=== PATIENT | female | born 1990 | race Two or more races ===

== ENCOUNTER 2022-01-25 02:34 | Inpatient (IN) | payer OTHER, SELFPAY ==
--- NOTE | ~2022-01-25 | CT_ITS ---
EXAMINATION: CT ABDOMEN AND PELVIS WITHOUT CONTRAST CLINICAL INFORMATION: Left flank pain COMPARISON: None TECHNIQUE: Multidetector volumetric imaging was performed from the superior aspect of the liver through the pubic symphysis. Sagittal and coronal reformatted images were obtained on the technologist's workstation. This CT examination was performed using dose optimization techniques as appropriate, variously including the following: *Automated exposure control *Adjustment of mA and/or kV according to patient size (this includes techniques or standardized protocols for targeted exams where dose is matched to indication/reason for exam; i.e. extremities or head) *Use of iterative reconstruction technique DLP: 541 mGy-cm FINDINGS: LUNG BASES: The visualized lung bases are unremarkable. LIVER, GALLBLADDER, AND BILIARY TREE: The liver is normal in size, shape, and attenuation. No focal hepatic lesion or biliary ductal dilatation is present. Cholecystectomy. PANCREAS: Unremarkable. SPLEEN: Unremarkable. ADRENAL GLANDS: Unremarkable. KIDNEYS AND URETERS: The kidneys are normal in size, shape, and attenuation. Mild left hydroureteronephrosis. 0.5 cm distal ureteral calculus noted which is approximately 3 cm proximal to the ureterovesicular junction. There is medullary nephrocalcinosis with multiple bilateral renal calculi present the largest of these measures approximately 900 Hounsfield units, measuring up to 0.6 cm .. BLADDER: Unremarkable. GASTROINTESTINAL TRACT: The stomach is unremarkable. Normal caliber small bowel. No obstruction. No colonic wall thickening or inflammatory change. Normal appendix. ABDOMINAL WALL: No significant hernia is appreciated. LYMPH NODES: Normal. VASCULAR: Unremarkable. PELVIC VISCERA: The uterus and adnexa are unremarkable. OSSEOUS STRUCTURES: No acute or suspicious osseous abnormality. CT/CT abdomen pelvis wo con IMPRESSION: Medullary nephrocalcinosis. Mild left hydroureteronephrosis with a 0.4 cm distal ureteral calculus noted. Fleischner guidelines were followed.
--- NOTE | ~2022-01-25 | FL_ITS ---
EXAMINATION: XR FLUOROSCOPY WITH IMAGES CLINICAL INFORMATION: Left ureteral stone COMPARISON: CT 01/25/2022 TECHNIQUE: Fluoroscopy performed by Dr. Bowen Eubanks. Fluoroscopy time: 25.3 seconds Images: 2 FINDINGS: On these images there is a left ureteral stent in place. No contrast seen. FL/FL guidance in OR IMPRESSION: Fluoroscopic guidance with left ureteral stent placement. Please refer to procedural report for further information.
[2022-01-25 03:06] VITALS: BP 142/100; PULSE 102; RESP 24; TEMP 37.2; O2SAT 100; BMI 29.2
[2022-01-25] MEDS: Ketorolac Tromethamine 15 MG/ML VIAL IM (04:08)
[2022-01-25] MEDS: Ondansetron ODT 4 MG TAB.RAPDIS TRANSLINGU (04:09)
[2022-01-25 05:16] LABS: MANUAL DIFF FLAG NO
[2022-01-25 05:17] LABS: Basophils Percent Auto 0.2 % (0-2); Eosinophils Percent Auto 0.3 % (0-4); Hematocrit 38.9 % (37.0-47.0); Hemoglobin 13.6 g/dl (12.0-16.0); Imm Gran Abs Auto 0.08 X10*3/uL (0.00-0.03); Imm Gran Pct Auto 0.6 % (0.0-0.4); Lymphocytes Absolute Auto 1.5 X10*3/uL (1.2-4.9); Lymphocytes Percent Auto 11.6 % (20-40); Mean Corpuscular Hemoglobin 31.5 pg (27.0-33.0); Mean Platelet Volume 9.9 fL (9.4-12.3); Monocytes Absolute Auto 0.4 X10*3/uL (0.1-1.2); Monocytes Percent Auto 3.2 % (2-11); Neutrophils Absolute Auto 11.1 x10*3/uL (2.0-8.3); Neutrophils Percent Auto 84.1 % (45-73); Platelet Count 338 X10*3/uL (160-400); Red Blood Count 4.32 X10*6/uL (4.20-5.50); Red Cell Distribution Width 12.4 % (11.0-16.0); White Blood Count 13.2 X10*3/uL (4.8-10.8)
[2022-01-25] MEDS: 0.9 % Sodium Chloride 1,000 ML 999 ML IV (05:27)
[2022-01-25] MEDS: fentaNYL citrate/PF 100 MCG/2 ML VIAL 25 MCG IVPUSH ×2 (05:27→08:00)
--- NOTE | 2022-01-25 05:27 | ED.ABDPAIN ---
HPI - Abdominal Pain General Chief Complaint: Abdominal Pain Stated Complaint: Flank pain/?Kidney stone Time Seen by Provider: 01/25/22 05:18 Source: patient Mode of arrival: ambulatory History of Present Illness HPI narrative: 32-year-old female without significant past medical history other than renal colic who presents with onset of left flank pain that began at 01:30 and has been associated with nausea but she denies any vomiting or fevers and has had chills when experiencing the pain. She denies any prior urinary pain/burning/frequency before the onset of the left flank pain. Related Data Allergies Allergy/AdvReac Type Severity Reaction Status Date / Time No Known Allergies Allergy Verified 01/25/22 03:06 Review of Systems Review of Systems Pertinent positives and negatives as stated in HPI 10 point review of systems is otherwise negative. FORMERLY [facility] Past Medical History Source: nursing notes reviewed Social History Social History Advance Directives: No Physical Exam ED Vital Signs: Vital Signs - 24 hr 01/25/22 03:06 01/25/22 06:21 Temperature 98.9 F 98.3 F Pulse Rate 102 H 98 Respiratory Rate 24 H 16 Blood Pressure 142/100 H 133/81 Pulse Oximetry 100 100 BMI result Body Mass Index 29.2 VITAL SIGNS: Reviewed. GENERAL: Well developed, well nourished, in no acute distress. HEAD: Normocephalic/atraumatic EYES: PERRLA, EOMI EARS: Ext canals without abnormality OROPHARYNX: no oral lesions noted, posterior pharynx clear LUNGS: Normal breath sounds. No adventitious sounds or accessory muscle use. SpO2<100> CARDIOVASCULAR: Regular rate and rhythm without noted murmurs, ABDOMEN: Soft, left flank discomfort on palpation without rebound, non-distended with bowel sounds, no CVA tenderness MUSCULOSKELETAL: No tenderness, deformities, or effusions noted on gross inspection. EXTREMITIES: No cyanosis, clubbing or edema. SKIN: Inspection of the skin reveals no rashes NEUROLOGIC: Alert and oriented x 4. Course Course Course Narrative: 32-year-old female with history and clinical presentation consistent with most likely renal colic and doubt pyelonephritis, diverticulitis. Review of all investigations demonstrates a 4 mm stone with hydroureteronephrosis and pain is not well controlled. Patient receiving IV fluids and will receive more pain medications. Reevaluation(s) Reevaluation #1: I discussed case with Dr. Eubanks who will see the patient in the ER. Time: 07:25 MDM - Abdominal Pain Lab Data Result diagrams: 01/25/22 05:12 01/25/22 05:12 Labs: Lab Results 01/25/22 01/25/22 01/25/22 Range/Units 05:12 05:12 06:26 WBC 13.2 H (4.8-10.8) X10*3/uL RBC 4.32 (4.20-5.50) X10*6/uL Hgb 13.6 (12.0-16.0) g/dl Hct 38.9 (37.0-47.0) % MCV 90.0 (80.0-98.0) fL MCH 31.5 (27.0-33.0) pg MCHC 35.0 (31.0-35.0) g/dl RDW 12.4 (11.0-16.0) % Plt Count 338 (160-400) X10*3/uL MPV 9.9 (9.4-12.3) fL Immature Gran % (Auto) 0.6 H (0.0-0.4) % Neut % (Auto) 84.1 H (45-73) % Lymph % (Auto) 11.6 L (20-40) % [place] % (Auto) 3.2 (2-11) % Eos % (Auto) 0.3 (0-4) % Baso % (Auto) 0.2 (0-2) % Lymph # (Auto) 1.5 (1.2-4.9) X10*3/uL [place] # (Auto) 0.4 (0.1-1.2) X10*3/uL Eos # (Auto) 0.0 (0.0-0.4) X10*3/uL Baso # (Auto) 0.0 (0.0-0.2) X10*3/uL Abs Immat Gran (auto) 0.08 H (0.00-0.03) X10*3/uL Absolute Neuts (auto) 11.1 H (2.0-8.3) x10*3/uL Absolute Nucleated RBC 0.000 (0.0-0.012) X10*3/uL Nucleated RBC % (auto) 0.0 (0.0-0.2) /100WBC Sodium 136 (135-145) mmol/L Potassium 3.4 (3.3-5.1) mmol/L Chloride 109 H (96-108) mmol/L Carbon Dioxide 18 L (22-29) mmol/L Anion Gap 12 (12-20) BUN 12 (9-16) mg/dL Creatinine 0.91 (0.5-1.4) mg/dL Estim Creat Clear Calc 83.6 Estimated GFR > 60 Random Glucose 213 H (60-115) mg/dL Calcium 9.4 (8.4-10.2) mg/dL Total Bilirubin 0.5 (0.0-1.0) mg/dL AST 24 (5-31) U/L ALT 39 H (0-31) U/L Alkaline Phosphatase 111 (39-117) U/L Total Protein 7.4 (6.5-8.0) g/dL Albumin 4.4 (3.5-5.0) g/dL Lipase 15 (8-78) U/L Beta HCG, Quant < 2 mIU/mL Urine Color YELLOW Urine Appearance CLEAR Urine pH 6.0 (5.0-8.0) Ur Specific [place] 1.015 (1.005-1.025) Urine Protein NEG (NEG-TRACE) MG/DL Urine Glucose (UA) 100 H (NEG) MG/DL Urine Ketones NEG (NEG) MG/DL Urine Blood 3+ H (NEG) Urine Nitrite NEG (NEG) Ur Leukocyte Esterase 1+ H (NEG) Urine RBC 50-75 H (0) /HPF Urine WBC 1-4 (0-4) /HPF Ur Squamous Epith Cells TRACE /LPF Urine Bacteria NONE /LPF Urine Test (NEGATIVE) 01/25/22 Range/Units 06:26 WBC (4.8-10.8) X10*3/uL RBC (4.20-5.50) X10*6/uL Hgb (12.0-16.0) g/dl Hct (37.0-47.0) % MCV (80.0-98.0) fL MCH (27.0-33.0) pg MCHC (31.0-35.0) g/dl RDW (11.0-16.0) % Plt Count (160-400) X10*3/uL MPV (9.4-12.3) fL Immature Gran % (Auto) (0.0-0.4) % Neut % (Auto) (45-73) % Lymph % (Auto) (20-40) % [place] % (Auto) (2-11) % Eos % (Auto) (0-4) % Baso % (Auto) (0-2) % Lymph # (Auto) (1.2-4.9) X10*3/uL [place] # (Auto) (0.1-1.2) X10*3/uL Eos # (Auto) (0.0-0.4) X10*3/uL Baso # (Auto) (0.0-0.2) X10*3/uL Abs Immat Gran (auto) (0.00-0.03) X10*3/uL Absolute Neuts (auto) (2.0-8.3) x10*3/uL Absolute Nucleated RBC (0.0-0.012) X10*3/uL Nucleated RBC % (auto) (0.0-0.2) /100WBC Sodium (135-145) mmol/L Potassium (3.3-5.1) mmol/L Chloride (96-108) mmol/L Carbon Dioxide (22-29) mmol/L Anion Gap (12-20) BUN (9-16) mg/dL Creatinine (0.5-1.4) mg/dL Estim Creat Clear Calc Estimated GFR Random Glucose (60-115) mg/dL Calcium (8.4-10.2) mg/dL Total Bilirubin (0.0-1.0) mg/dL AST (5-31) U/L ALT (0-31) U/L Alkaline Phosphatase (39-117) U/L Total Protein (6.5-8.0) g/dL Albumin (3.5-5.0) g/dL Lipase (8-78) U/L Beta HCG, Quant mIU/mL Urine Color Urine Appearance Urine pH (5.0-8.0) Ur Specific [place] (1.005-1.025) Urine Protein (NEG-TRACE) MG/DL Urine Glucose (UA) (NEG) MG/DL Urine Ketones (NEG) MG/DL Urine Blood (NEG) Urine Nitrite (NEG) Ur Leukocyte Esterase (NEG) Urine RBC (0) /HPF Urine WBC (0-4) /HPF Ur Squamous Epith Cells /LPF Urine Bacteria /LPF Urine Test NEGATIVE (NEGATIVE) Discharge Plan Discharge Clinical Impression: Renal colic, Ureterolithiasis, Hydronephrosis Patient Disposition: Still a Patient
[2022-01-25 05:34] LABS: Alanine Aminotransferase 39 U/L (0-31); Albumin Level 4.4 g/dL (3.5-5.0); Alkaline Phosphatase 111 U/L (39-117); Anion Gap 12 (12-20); Aspartate Amino Transferase 24 U/L (5-31); Bilirubin Total 0.5 mg/dL (0.0-1.0); Blood Urea Nitrogen 12 mg/dL (9-16); Calcium 9.4 mg/dL (8.4-10.2); Carbon Dioxide 18 mmol/L (22-29); Chloride 109 mmol/L (96-108); Creatinine Clr Calc Pharmacy 83.6; Estimated Glomerular Filt Rate > 60; Glucose Random 213 mg/dL (60-115); Lipase 15 U/L (8-78); Potassium 3.4 mmol/L (3.3-5.1); Sodium 136 mmol/L (135-145); Total Protein 7.4 g/dL (6.5-8.0)
[2022-01-25 05:40] LABS: HCG Quantitative < 2 mIU/mL
[2022-01-25 06:21] VITALS: BP 133/81; PULSE 98; RESP 16; TEMP 36.8; O2SAT 100
[2022-01-25 06:36] LABS: Appearance Urine CLEAR; Color Urine YELLOW; Glucose Urine UA 100 MG/DL (NEG); Leukocyte Esterase Urine 1+ (NEG); Nitrite Urine NEG (NEG); Specific Gravity - Urine 1.015 (1.005-1.025); UACC Culture Trigger YES; Urine Blood 3+ (NEG); Urine Ketones NEG (NEG); Urine Protein NEG (NEG-TRACE)
[2022-01-25 06:40] LABS: UPreg QC Valid YES; Urine Pregnancy NEGATIVE (NEGATIVE)
[2022-01-25 06:47] LABS: RBC Urine 50-75 /HPF (0); Squamous Epithelial Cell Urine TRACE /LPF
[2022-01-25 07:59] VITALS: BP 135/93; PULSE 89; RESP 18; O2SAT 100
[2022-01-25] MEDS: Ketorolac Tromethamine 30 MG/ML VIAL 15 MG IVPUSH (08:00)
--- NOTE | 2022-01-25 08:00 | PC.NURSE ---
pt alert and oriented, skin pwd, respirations even and unlabored, pt reports left sided flank pain that is starting to wrap to the front, pain at 9/10, pt denies nausea, vs stable
[2022-01-25 08:42] LABS: COVID-19 Test Negative (Negative); IDNOW Serial# 16C4AD1C
--- NOTE | 2022-01-25 09:19 | PC.NURSE ---
pt is currently asleep
[2022-01-25] MEDS: fentaNYL citrate/PF 100 MCG/2 ML VIAL 50 MCG IVPUSH ×2 (13:07→19:40)
--- NOTE | 2022-01-25 19:18 | PM.IMHP ---
History of Present Illness Date of Service: 01/25/22 Chief Complaint: left flank pain 32-year-old female with a past medical history of renal calculi requiring nephrostomy tubes in the past presented to the hospital today with a chief complaint of left flank pain. Patient reported that she has woke up in the morning and developed severe pain in her left flank; 10/10 in intensity, sharp, nonradiating, noted mild blood in the urine. Denies any burning or frequency during urination. Denies any fever chills cough. Denies any GI symptoms. Denies any chest pain or palpitations. Mentions that the pain is mostly constant. Review of all other systems is negative except mentioned above ER course: Per ER team patient noted to have left flank tenderness; CT scan showed medullary nephrocalcinosis with mild left hydro ureteral nephrosis with a 0.4 cm distal ureteral calculus. Urinalysis was negative for infection. Given pain medications. Admitted to the hospital for further evaluation. Patient was also evaluated by Dr. Eubanks in the ER and recommended admission to hospitalist service, to keep the patient NPO after midnight for possible procedure in the morning. FORMERLY [facility] Social History Patient Tobacco Use Status: Never used Tobacco Use of substances other than those prescribed or required for medical reasons: No Advance Directives: No Meds Allergies Allergy/AdvReac Type Severity Reaction Status Date / Time No Known Allergies Allergy Verified 01/25/22 03:06 Active Medications: Current Medications Acetaminophen (Acetaminophen 325 Mg Tablet) 650 mg PO Q6H PRN PRN Reason: Pain, Mild (Pain Scale 1-3) Dicyclomine HCl (Dicyclomine Hcl 10 Mg Capsule) 10 mg PO ONCE ONE Stop: 01/25/22 19:16 Heparin Sodium (Porcine) (Heparin Sodium,Porcine 5,000 Unit/Ml Vial) 5,000 unit SUBCUT Q8H DUY Hydromorphone HCl (Hydromorphone Hcl 1 Mg/Ml Syringe) 0.5 mg IVPUSH Q4H PRN; Protocol PRN Reason: Pain, Severe (Pain Scale 7-10) Dextrose/Sodium Chloride (D51/2ns) 1,000 mls @ 50 mls/hr IVCONT .Q20H DUY Melatonin (Melatonin 3 Mg Tablet) 6 mg PO BEDTIME PRN PRN Reason: Insomnia Senna (Sennosides 8.6 Mg Tablet) 17.2 mg PO BEDTIME PRN PRN Reason: Constipation Sodium Chloride (0.9 % Sodium Chloride Flush 3 Ml Syringe) 3 ml IVFLUSH QSHIFT DUY Physical Exam Vital Signs and Narrative: Vital Signs: Last Vital Signs Temp 98.3 F 01/25/22 06:21 Pulse 89 01/25/22 07:59 Resp 18 01/25/22 07:59 BP 135/93 H 01/25/22 07:59 Pulse Ox 100 01/25/22 07:59 BMI result Body Mass Index 29.2 Gen: Appears be in no acute distress HEENT: NCAT, Moist mucosa. Pulmonary: Vesicular breath sounds, fair air entry CVS: Normal S1-S2 Abdomen: BS+, Soft, tender in the left flank Extremities: Warm well perfused Neuro: Alert and awake. Results Labs CBC and Chem 7: 01/25/22 05:12 01/25/22 05:12 Labs: Laboratory Results - last 24 hr 01/25/22 01/25/22 01/25/22 05:12 05:12 06:26 MCV 90.0 MCH 31.5 MCHC 35.0 RDW 12.4 Plt Count 338 MPV 9.9 Immature Gran % (Auto) 0.6 H Neut % (Auto) 84.1 H Lymph % (Auto) 11.6 L [place] % (Auto) 3.2 Eos % (Auto) 0.3 Baso % (Auto) 0.2 Lymph # (Auto) 1.5 [place] # (Auto) 0.4 Eos # (Auto) 0.0 Baso # (Auto) 0.0 Abs Immat Gran (auto) 0.08 H Absolute Neuts (auto) 11.1 H Absolute Nucleated RBC 0.000 Nucleated RBC % (auto) 0.0 Anion Gap 12 Estim Creat Clear Calc 83.6 Estimated GFR > 60 Random Glucose 213 H Calcium 9.4 Total Bilirubin 0.5 AST 24 ALT 39 H Alkaline Phosphatase 111 Total Protein 7.4 Albumin 4.4 Lipase 15 Beta HCG, Quant < 2 Urine Color YELLOW Urine Appearance CLEAR Urine pH 6.0 Ur Specific [place] 1.015 Urine Protein NEG Urine Glucose (UA) 100 H Urine Ketones NEG Urine Blood 3+ H Urine Nitrite NEG Ur Leukocyte Esterase 1+ H Urine RBC 50-75 H Urine WBC 1-4 Ur Squamous Epith Cells TRACE Urine Bacteria NONE Urine Test COVID-19 (SERAFIN) COVID-19 Clin Com 01/25/22 01/25/22 06:26 08:13 MCV MCH MCHC RDW Plt Count MPV Immature Gran % (Auto) Neut % (Auto) Lymph % (Auto) [place] % (Auto) Eos % (Auto) Baso % (Auto) Lymph # (Auto) [place] # (Auto) Eos # (Auto) Baso # (Auto) Abs Immat Gran (auto) Absolute Neuts (auto) Absolute Nucleated RBC Nucleated RBC % (auto) Anion Gap Estim Creat Clear Calc Estimated GFR Random Glucose Calcium Total Bilirubin AST ALT Alkaline Phosphatase Total Protein Albumin Lipase Beta HCG, Quant Urine Color Urine Appearance Urine pH Ur Specific [place] Urine Protein Urine Glucose (UA) Urine Ketones Urine Blood Urine Nitrite Ur Leukocyte Esterase Urine RBC Urine WBC Ur Squamous Epith Cells Urine Bacteria Urine Test NEGATIVE COVID-19 (SERAFIN) Negative COVID-19 Clin Com See Note Imaging Radiologist's Impressions: Impressions Abdomen/Pelvis CT 01/25/22 06:41 IMPRESSION: Medullary nephrocalcinosis. Mild left hydroureteronephrosis with a 0.4 cm distal ureteral calculus noted. Fleischner guidelines were followed. Assessment and Plan (1) Renal colic: Status: Acute (2) Ureterolithiasis: Status: Acute (3) Hydronephrosis: Status: Acute Plan 32-year-old female with a past medical history of renal calculi requiring nephrostomy tubes in the past presented to the hospital today with a chief complaint of left flank pain. Medullary nephrocalcinosis/ distal ureteral calculus/left hydroureteronephrosis: Pain control NPO after midnight Dr. Eubanks has evaluated the patient. Mild hematuria-likely in the setting of calculus. DVT prophylaxis: SCD boots Code status: Full code Quality Stroke Does the patient have a stroke diagnosis?: No VTE Prior VTE?: No VTE Risk Level:: Medical - moderate - high VTE Device Contraindication: Treatment Not Indicated VTE Drug Contraindication: N/A - Med Ordered
[2022-01-25 19:24] VITALS: BP 136/90; PULSE 76; RESP 18; TEMP 36.7; O2SAT 99
[2022-01-25] MEDS: Dextrose 5 % and 0.45 % NaCl 1,000 ML 50 ML IVCONT (19:39)
[2022-01-25] MEDS: Dicyclomine HCl 10 MG CAPSULE PO (19:40)
--- NOTE | 2022-01-25 19:46 | PC.NURSE ---
Addendum entered by Lorraine Urbano 01/26/22 06:27: Dr. Gong made aware that pt pain is 10/10, pt medicated at 0558am with PRN meds with no relief, waiting for additonal pain meds order Addendum entered by Lorraine Urbano 01/26/22 06:12: Report given to RIMA Apple Original Note: report received from RIMA Michael. pt is alert and oriented. resting in bed. no signs of acute distress notice. breathing equally unlabored. pt c/o of 8/10 L sided abd pain, medicated per nov.
[2022-01-25 23:48] VITALS: BP 117/77; PULSE 70; RESP 18; TEMP 36.9; O2SAT 98
[2022-01-26] VITALS (14 sets, daily range): BP systolic 123–152; BP diastolic 76–106; PULSE 72–118; RESP 16–22; TEMP 36.2–37.5; O2SAT 97–100
[2022-01-26] MEDS: HYDROmorphone HCl 0.5 MG/0.5 ML SYRINGE IVPUSH ×7 (02:23→19:33)
[2022-01-26] MEDS: HYDROmorphone HCl 1 MG/ML SYRINGE 0.6 MG IVPUSH (03:21)
[2022-01-26] MEDS: Dicyclomine HCl 10 MG CAPSULE PO (03:21)
[2022-01-26 04:46] LABS: MANUAL DIFF FLAG NO
[2022-01-26 04:49] LABS: Basophils Percent Auto 0.2 % (0-2); Eosinophils Absolute Auto 0.1 X10*3/uL (0.0-0.4); Eosinophils Percent Auto 1.1 % (0-4); Hematocrit 38.2 % (37.0-47.0); Hemoglobin 13.2 g/dl (12.0-16.0); Imm Gran Abs Auto 0.04 X10*3/uL (0.00-0.03); Imm Gran Pct Auto 0.5 % (0.0-0.4); Lymphocytes Absolute Auto 2.4 X10*3/uL (1.2-4.9); Mean Corpuscular HGB Conc 34.6 g/dl (31.0-35.0); Mean Corpuscular Hemoglobin 31.3 pg (27.0-33.0); Mean Corpuscular Volume 90.5 fL (80.0-98.0); Mean Platelet Volume 10.1 fL (9.4-12.3); Monocytes Absolute Auto 0.7 X10*3/uL (0.1-1.2); Monocytes Percent Auto 7.5 % (2-11); Neutrophils Absolute Auto 5.6 x10*3/uL (2.0-8.3); Neutrophils Percent Auto 63.7 % (45-73); Platelet Count 338 X10*3/uL (160-400); Red Blood Count 4.22 X10*6/uL (4.20-5.50); Red Cell Distribution Width 12.6 % (11.0-16.0); White Blood Count 8.8 X10*3/uL (4.8-10.8)
[2022-01-26 05:01] LABS: Anion Gap 12 (12-20); Blood Urea Nitrogen 7 mg/dL (9-16); Carbon Dioxide 20 mmol/L (22-29); Chloride 113 mmol/L (96-108); Estimated Glomerular Filt Rate > 60; Glucose Random 123 mg/dL (60-115); Potassium 3.6 mmol/L (3.3-5.1); Sodium 141 mmol/L (135-145)
--- NOTE | 2022-01-26 07:39 | P.PNIM_ITS ---
Subjective Subjective Date of Service: 01/26/22 Interval History: Renal stone Review of Systems Still has significant left flank pain, denies any nausea vomiting or fever or chills or cough or phlegm. Physical Exam Vital Signs: Vital Signs: Last Vital Signs Temp 97.1 F 01/26/22 07:23 Pulse 90 01/26/22 07:23 Resp 20 01/26/22 07:23 BP 142/94 H 01/26/22 07:23 Pulse Ox 99 01/26/22 07:23 BMI result Body Mass Index 29.2 Gen: Appears be in no acute distress HEENT:? NCAT,? Moist mucosa. Pulmonary:? Vesicular breath sounds, fair air entry CVS:? Normal S1-S2 Abdomen: BS+, Soft,? tender in the left flank Extremities:? Warm well perfused Neuro:? Alert and awake. ? Objective Data Active Medications Acetaminophen (Acetaminophen 325 Mg Tablet) 650 mg PO Q6H PRN PRN Reason: Pain, Mild (Pain Scale 1-3) Hydromorphone HCl (Hydromorphone Hcl 0.5 Mg/0.5 Ml Syringe) 0.5 mg IVPUSH Q4H PRN; Protocol PRN Reason: Pain, Severe (Pain Scale 7-10) Last Admin: 01/26/22 05:58 Dose: 0.5 mg Documented by: AMANDA Dextrose/Sodium Chloride (D51/2ns) 1,000 mls @ 50 mls/hr IVCONT .Q20H [facility] Last Admin: 01/25/22 19:39 Dose: 50 mls/hr Documented by: ANA-ARTHURICL Melatonin (Melatonin 3 Mg Tablet) 6 mg PO BEDTIME PRN PRN Reason: Insomnia Senna (Sennosides 8.6 Mg Tablet) 17.2 mg PO BEDTIME PRN PRN Reason: Constipation Sodium Chloride (0.9 % Sodium Chloride Flush 3 Ml Syringe) 3 ml IVFLUSH QSHIFT [facility] Last Admin: 01/25/22 23:06 Dose: Not Given Documented by: ANA-ANICL Non-Admin Reason: IV Running Labs CBC & Chem 7: 01/26/22 04:12 01/26/22 04:12 Labs: Laboratory Results - last 24 hr 01/25/22 01/26/22 01/26/22 08:13 04:12 04:12 MCV 90.5 MCH 31.3 MCHC 34.6 RDW 12.6 Plt Count 338 MPV 10.1 Immature Gran % (Auto) 0.5 H Neut % (Auto) 63.7 Lymph % (Auto) 27.0 [place] % (Auto) 7.5 Eos % (Auto) 1.1 Baso % (Auto) 0.2 Lymph # (Auto) 2.4 [place] # (Auto) 0.7 Eos # (Auto) 0.1 Baso # (Auto) 0.0 Abs Immat Gran (auto) 0.04 H Absolute Neuts (auto) 5.6 Absolute Nucleated RBC 0.000 Nucleated RBC % (auto) 0.0 Anion Gap 12 Estim Creat Clear Calc 95.0 Estimated GFR > 60 Random Glucose 123 H Calcium 9.0 COVID-19 (SERAFIN) Negative COVID-19 Clin Com See Note Assessment and Plan (1) Medullary sponge kidney: Status: Acute (2) Renal colic: Status: Acute Plan ?32-year-old female with a past medical history of renal calculi? requiring nephrostomy tubes in the past presented to the hospital today with a chief complaint of left flank pain.? 1.Medullary nephrocalcinosis/ distal ureteral calculus/left hydroureteronephrosis: Pain control NPO after midnight,pain management with iv dilaudid Dr. Eubanks has evaluated the patient.? Mild hematuria-likely in the setting of calculus. ? DVT prophylaxis: SCD boots Code status: Full code Quality Stroke Does the patient have a stroke diagnosis?: No VTE Prior VTE?: No VTE Risk Level:: Medical - moderate - high VTE Device Contraindication: Treatment Not Indicated VTE Drug Contraindication: N/A - Med Ordered
--- NOTE | 2022-01-26 09:45 | HE.PHANOTE ---
Messaged provider about the scheduled hydromorphone 0.5 mg Q4H order, Dr. Aguilar said he would like to keep the order as a scheduled medication.
--- NOTE | 2022-01-26 10:38 | P.CNUR_ITS ---
History of Present Illness Consult details Consult date: 01/26/22 Narrative: Rylee is a pleasant female Admitted to hospital with left-sided flank pain unable to tolerate oral pain medications Creatinine 0.8, WBC 8.8 down from 13.3, calcium 9.0 Imaging - Medullary nephrocalcinosis. Mild left hydroureteronephrosis with a 0.4 cm distal ureteral calculus noted Multiple prior kidney stone procedures through [facility] at [facility] If she says typically she needs intervention when passing stone Will plan for intervention - cystoscopy, left retrograde, left ureteroscopy with laser lithotripsy and stent placement Review of Systems Constitutional: Constitutional: Denies chills and Denies fever(s) Cardiovascular: Cardiovascular: Reports no additional cardiovascular complaints and Denies syncope Respiratory: Respiratory: Denies cough Gastrointestinal: Gastrointestinal: Denies abdominal pain and Denies heartburn Genitourinary: Genitourinary: Reports as per HPI and Denies change in libido Neurologic: Denies syncope Psychiatric: Psychiatric: Denies change in libido Endocrine: Endocrine: Denies change in libido [facility] Social History Social History Patient Tobacco Use Status: Never used Tobacco Use of substances other than those prescribed or required for medical reasons: No Advance Directives: No Meds Allergies Allergy/AdvReac Type Severity Reaction Status Date / Time No Known Allergies Allergy Verified 01/25/22 03:06 Active Medications: Current Medications Acetaminophen (Acetaminophen 325 Mg Tablet) 650 mg PO Q6H PRN PRN Reason: Pain, Mild (Pain Scale 1-3) Hydromorphone HCl (Hydromorphone Hcl 0.5 Mg/0.5 Ml Syringe) 0.5 mg IVPUSH Q4H DUY; Protocol Last Admin: 01/26/22 09:54 Dose: 0.5 mg Documented by: Dextrose/Sodium Chloride (D51/2ns) 1,000 mls @ 50 mls/hr IVCONT .Q20H DUY Last Admin: 01/25/22 19:39 Dose: 50 mls/hr Documented by: Melatonin (Melatonin 3 Mg Tablet) 6 mg PO BEDTIME PRN PRN Reason: Insomnia Senna (Sennosides 8.6 Mg Tablet) 17.2 mg PO BEDTIME PRN PRN Reason: Constipation Sodium Chloride (0.9 % Sodium Chloride Flush 3 Ml Syringe) 3 ml IVFLUSH QSHIFT DUY Last Admin: 01/26/22 07:46 Dose: Not Given Documented by: Home Medications Medication Instructions Recorded Confirmed Last Taken Type No Known Home Meds 01/26/22 01/26/22 Unknown History Physical Exam Vital Signs: Vital Signs: Last Vital Signs Temp 97.3 F 01/26/22 08:00 Pulse 92 01/26/22 08:00 Resp 20 01/26/22 08:00 BP 144/92 H 01/26/22 08:00 Pulse Ox 99 01/26/22 08:00 BMI result Body Mass Index 29.2 Const: General: cooperative, healthy appearing, comfortable and no acute distress Orientation/consciousness: patient oriented x3 HEENT: Face and sinus: Yes normal facial exam Mouth: moist mucous membranes Neck: Neck: Yes normal visual inspection, Yes full ROM and Yes trachea midline Chest: Chest palpation & inspection: normal inspection of the chest Resp: Effort & Inspection: normal respiratory effort, able to speak in complete sentences and no respiratory distress GI: Inspection: Yes normal to inspection Back/Spine/Pelvis: Cervical Spine: normal cervical lordosis Thoracic/Lumbar Spine: thoracic and lumbar spine normal to inspection Skin: General skin exam: no rashes or lesions noted Neuro: General: patient oriented x3, gait normal, tone normal and moves all extremities Extrem: General: Yes normal to inspection and Yes capillary refill normal Results Labs Result diagrams: 01/26/22 04:12 01/26/22 04:12 Labs: Abnormal lab results 01/26/22 01/26/22 Range/Units 04:12 04:12 Immature Gran % (Auto) 0.5 H (0.0-0.4) % Abs Immat Gran (auto) 0.04 H (0.00-0.03) X10*3/uL Chloride 113 H (96-108) mmol/L Carbon Dioxide 20 L (22-29) mmol/L BUN 7 L (9-16) mg/dL Random Glucose 123 H (60-115) mg/dL Short CBC 01/26/22 Range/Units 04:12 WBC 8.8 (4.8-10.8) X10*3/uL Hgb 13.2 (12.0-16.0) g/dl Hct 38.2 (37.0-47.0) % Plt Count 338 (160-400) X10*3/uL BMP 01/26/22 04:12 Sodium 141 Potassium 3.6 Chloride 113 H Carbon Dioxide 20 L BUN 7 L Creatinine 0.80 Calcium 9.0 Urine 01/25/22 01/25/22 Range/Units 06:26 06:26 Urine Color YELLOW Urine Appearance CLEAR Urine pH 6.0 (5.0-8.0) Ur Specific [place] 1.015 (1.005-1.025) Urine Protein NEG (NEG-TRACE) MG/DL Urine Glucose (UA) 100 H (NEG) MG/DL Urine Test NEGATIVE (NEGATIVE) All other labs normal. Assessment and Plan (1) Medullary sponge kidney: Status: Acute (2) Ureterolithiasis: Status: Acute Plan Ureteroscopy We discussed the nature of the decision and reasonable alternatives for performing the above surgery. Interventions include chemical dissolution, ESWL, ureteroscopy with laser lithotripsy and stent placement, PCNL. Options such as medical therapy were discussed. The relative uncertainties and benefits related to each alternate procedure were adequately discussed. General surgical risks including, but not limited to, pain, bleeding, infection, myocardial infarction, pulmonary embolus, deep vein thrombosis and cerebrovascular accident which may result in further hospitalization were discussed. Full disclosure of the procedure as well as all major risks, benefits and complications were discussed including but not limited to damage to the urethra, bladder and kidney infection, damage to the ureter, stent migration or malposition, scarring to the renal pelvis, remnant stone fragments, subsequent stone passage with need for secondary procedures. The overall secondary procedur e rate is approximately 10-15%. The success rate of the procedure was discussed. Success of the procedure in the short-term does not necessarily guarantee that long-term success will be maintained. Suitable follow up will need to be maintained. The patient showed understanding of discussion and wishes to proceed with - cystoscopy, retrograde, ureteroscopy, possible lithotripsy/stone basketing and stent on the left side Procedures Date of Service Date of Service: 01/26/22
--- NOTE | 2022-01-26 13:06 | MHC.CM.PN ---
hilary gamboa case resource manager note electronicmeedical record reviewed rashi with case disucssed with staff nurse and the hospitit , per [facility] patient will have a urological procedure and possibly later today if medically stable may be discharged home later tonight. patient reports she is active , independent in all adls and mobility with put any devices , she has [place] no dme services , she drives and is employed by [employer] and is followed by the [employer] physician PATIENT RECIVED ONE COVID VACINATION, EDUCATED ABOUT THE IMPORTANCE OF HAVING A HEALTH CARE PROXY BIUT DECLINED TO COMLETE ONE discharge plan home with no services anticipated, transportation family care manger to continue to follow for [place] NEW DISCHARGE NEEDS ,
[2022-01-26] MEDS: Dextrose 5 % and 0.45 % NaCl 1,000 ML 50 ML IVCONT (17:00)
--- NOTE | 2022-01-26 21:23 | MHC.SHP ---
Pre-Procedural Eval Section A Date of Service: 01/26/22 The patient is an INPATIENT: Yes Changes since office visit: No Cold of Flu in the past 2 weeks, No New Medical Problems, No Changes in Medication and No Patient answered all questions The History & Physical has been completed within 30 days and I have reviewed it.: Yes Section B Chief Complaint: Renal Stone Allergies: Allergies Allergy/AdvReac Type Severity Reaction Status Date / Time No Known Allergies Allergy Verified 01/25/22 03:06 Plan Diagnosis/Plan: Unchanged (cystoscopy, left retrograde, stent placement) I have reviewed the history and physical and performed a pertinent physical examination on my patient. No changes have occurred unless specified.
--- NOTE | 2022-01-26 22:07 | P.OP_ITS ---
Operative Note Operative Note Date of Service: 01/26/22 Narrative: PreOperative Diagnosis: distal left ureteric stone Post Operative Diagnosis: same Procedure: cysto, left retrograde, stent placement Surgeon: Dr Bowen Eubanks Anesthesia: GA Indications for procedure: distal stone with raised WBC Procedure: After informed consent was verified the patient was brought to the operating room and placed in a supine position. Anesthesia was administered per protocol. The patient was placed in modified dorsal lithotomy position and prepped and draped in a sterile fashion. A safety pause time-out was performed. Laterality of procedure and antibiotics were confirmed. appropriate imaging was available A 22 [place] cystoscope was introduced per urethra. No abnormality was noted. Both ureteric orifices were seen in a normal position. The left ureter was cannulated with an open ended catheter and a retrograde examination was performed. Distal obstructing stone with hydronephrosis seen . A Sensor guidewire was placed under fluoroscopy and a good coil was seen within the renal pelvis. A 6 x 24cm JJ stent was advanced over the wire and up to the level of the renal pelvis under fluoroscopic and direct visualization. The stent was seen with appropriate coil within the renal pelvis and in the bladder after deployment. The patient tolerated the procedure well and was transferred in stable condition to the recovery area. Pathology: none Drains: 6x24 JJ stent
--- NOTE | 2022-01-26 22:20 | P.CONAN_ITS ---
[facility] Active Problems Active Problems: All Active Problems (Updated 01/26/22 @ 10:41 by Bowen Eubanks MD) Medullary sponge kidney (Acute) Renal colic (Acute) Ureterolithiasis (Acute) Hydronephrosis (Acute) Family History Family history of problems with anesthesia: No Surgical History History of Problems with Anesthesia: No Social History Social History Household Members: Family Housing: House Patient Tobacco Use Status: Never used Tobacco Use of substances other than those prescribed or required for medical reasons: No Currently Displaying Signs/Symptoms of Drug Intoxication Withdrawal: No Have you been hit, kicked, punched, or otherwise hurt by someone within the past year? If so, by whom?: No Do you feel safe in your current relationship?: Yes Is there a partner from a previous relationship who is making you feel unsafe now?: No Are you made to feel afraid or neglected: No Advance Directives: No Do you have thoughts of harming others: None Do you have a plan to hurt others: No Plan Recently lost weight without trying: No Nutrition Risks: No Nutritional Risk service: No Current occupational status: employed Meds Allergies Allergy/AdvReac Type Severity Reaction Status Date / Time No Known Allergies Allergy Verified 01/25/22 03:06 Active Medications: Current Medications Acetaminophen (Acetaminophen 325 Mg Tablet) 650 mg PO Q6H PRN PRN Reason: Pain, Mild (Pain Scale 1-3) Hydromorphone HCl (Hydromorphone Hcl 0.5 Mg/0.5 Ml Syringe) 0.5 mg IVPUSH Q4H [facility]; Protocol Last Admin: 01/26/22 19:33 Dose: 0.5 mg Documented by: Dextrose/Sodium Chloride (D51/2ns) 1,000 mls @ 80 mls/hr IVCONT .[id number] DUY Last Infusion: 01/26/22 19:27 Dose: 80 mls/hr Documented by: Melatonin (Melatonin 3 Mg Tablet) 6 mg PO BEDTIME PRN PRN Reason: Insomnia Ondansetron HCl (Ondansetron Hcl 4 Mg/2 Ml Vial) 4 mg IVPUSH Q4H PRN PRN Reason: Nausea Senna (Sennosides 8.6 Mg Tablet) 17.2 mg PO BEDTIME PRN PRN Reason: Constipation Sodium Chloride (0.9 % Sodium Chloride Flush 3 Ml Syringe) 3 ml IVFLUSH QSHIFT [facility] Last Admin: 01/26/22 19:35 Dose: Not Given Documented by: Tramadol HCl (Tramadol Hcl 50 Mg Tablet) 50 mg PO Q6H PRN PRN Reason: Pain, Moderate (Pain Scale 4-6 Home Medications Medication Instructions Recorded Confirmed Last Taken Type No Known Home Meds 01/26/22 01/26/22 Unknown History Exam Exam Date and Time: January 26, 20222219 Height,Weight and Vital Signs: Height 5 ft 2 in Weight 72.575 kg Last Vital Signs Temp 99.5 F 01/26/22 20:54 Pulse 85 01/26/22 20:54 Resp 16 01/26/22 20:54 BP 143/90 H 01/26/22 21:04 Pulse Ox 98 01/26/22 20:54 Pertinent Lab Results Pertinent Lab Results: Laboratory Tests 01/25/22 01/25/22 01/25/22 05:12 05:12 06:26 WBC 13.2 H RBC 4.32 Hgb 13.6 Hct 38.9 MCV 90.0 MCH 31.5 MCHC 35.0 RDW 12.4 Plt Count 338 MPV 9.9 Immature Gran % (Auto) 0.6 H Neut % (Auto) 84.1 H Lymph % (Auto) 11.6 L [place] % (Auto) 3.2 Eos % (Auto) 0.3 Baso % (Auto) 0.2 Lymph # (Auto) 1.5 [place] # (Auto) 0.4 Eos # (Auto) 0.0 Baso # (Auto) 0.0 Abs Immat Gran (auto) 0.08 H Absolute Neuts (auto) 11.1 H Absolute Nucleated RBC 0.000 Nucleated RBC % (auto) 0.0 Sodium 136 Potassium 3.4 Chloride 109 H Carbon Dioxide 18 L Anion Gap 12 BUN 12 Creatinine 0.91 Estim Creat Clear Calc 83.6 Estimated GFR > 60 Random Glucose 213 H Calcium 9.4 Total Bilirubin 0.5 AST 24 ALT 39 H Alkaline Phosphatase 111 Total Protein 7.4 Albumin 4.4 Lipase 15 Beta HCG, Quant < 2 Urine Color YELLOW Urine Appearance CLEAR Urine pH 6.0 Ur Specific [place] 1.015 Urine Protein NEG Urine Glucose (UA) 100 H Urine Ketones NEG Urine Blood 3+ H Urine Nitrite NEG Ur Leukocyte Esterase 1+ H Urine RBC 50-75 H Urine WBC 1-4 Ur Squamous Epith Cells TRACE Urine Bacteria NONE Urine Test COVID-19 (SERAFIN) COVID-19 Clin Com 01/25/22 01/25/22 01/26/22 06:26 08:13 04:12 WBC 8.8 RBC 4.22 Hgb 13.2 Hct 38.2 MCV 90.5 MCH 31.3 MCHC 34.6 RDW 12.6 Plt Count 338 MPV 10.1 Immature Gran % (Auto) 0.5 H Neut % (Auto) 63.7 Lymph % (Auto) 27.0 [place] % (Auto) 7.5 Eos % (Auto) 1.1 Baso % (Auto) 0.2 Lymph # (Auto) 2.4 [place] # (Auto) 0.7 Eos # (Auto) 0.1 Baso # (Auto) 0.0 Abs Immat Gran (auto) 0.04 H Absolute Neuts (auto) 5.6 Absolute Nucleated RBC 0.000 Nucleated RBC % (auto) 0.0 Sodium Potassium Chloride Carbon Dioxide Anion Gap BUN Creatinine Estim Creat Clear Calc Estimated GFR Random Glucose Calcium Total Bilirubin AST ALT Alkaline Phosphatase Total Protein Albumin Lipase Beta HCG, Quant Urine Color Urine Appearance Urine pH Ur Specific [place] Urine Protein Urine Glucose (UA) Urine Ketones Urine Blood Urine Nitrite Ur Leukocyte Esterase Urine RBC Urine WBC Ur Squamous Epith Cells Urine Bacteria Urine Test NEGATIVE COVID-19 (SERAFIN) Negative COVID-19 Clin Com See Note 01/26/22 04:12 WBC RBC Hgb Hct MCV MCH MCHC RDW Plt Count MPV Immature Gran % (Auto) Neut % (Auto) Lymph % (Auto) [place] % (Auto) Eos % (Auto) Baso % (Auto) Lymph # (Auto) [place] # (Auto) Eos # (Auto) Baso # (Auto) Abs Immat Gran (auto) Absolute Neuts (auto) Absolute Nucleated RBC Nucleated RBC % (auto) Sodium 141 Potassium 3.6 Chloride 113 H Carbon Dioxide 20 L Anion Gap 12 BUN 7 L Creatinine 0.80 Estim Creat Clear Calc 95.0 Estimated GFR > 60 Random Glucose 123 H Calcium 9.0 Total Bilirubin AST ALT Alkaline Phosphatase Total Protein Albumin Lipase Beta HCG, Quant Urine Color Urine Appearance Urine pH Ur Specific [place] Urine Protein Urine Glucose (UA) Urine Ketones Urine Blood Urine Nitrite Ur Leukocyte Esterase Urine RBC Urine WBC Ur Squamous Epith Cells Urine Bacteria Urine Test COVID-19 (SERAFIN) COVID-19 Clin Com Airway Mallampati Class: II TM Dist: >3cm Neck ROM: Full Assessment and Plan Assessment Anesthesia Assessment: Anesthesia Plan Discussed and Chart Reviewed Final Anesthetic Review Family History of Problems with Anesthesia: No History of Problems with Anesthesia: No NPO: Yes ASA Class: I and Emergency Final Preanesthetic Review: No Changes in Pt Med Stat, Meds/Allgs Chart Reviewed, Consent Obtained/Reviewed and Anes Risks/Benef Reviewed Patient Risk: Low Procedure Risk: Low Anesthetic Plan Anesthetic Plan: GA Disposition: Standard PACU
[2022-01-26] MEDS: Phenazopyridine HCL 100 MG TABLET PO (22:43)
[2022-01-27 03:48] VITALS: BP 117/63; PULSE 82; RESP 18; TEMP 36.3; O2SAT 98
[2022-01-27 06:48] LABS: Anion Gap 11 (12-20); Blood Urea Nitrogen 7 mg/dL (9-16); Calcium 9.5 mg/dL (8.4-10.2); Carbon Dioxide 23 mmol/L (22-29); Chloride 108 mmol/L (96-108); Estimated Glomerular Filt Rate > 60; Glucose Random 166 mg/dL (60-115); Potassium 4.2 mmol/L (3.3-5.1); Sodium 138 mmol/L (135-145)
[2022-01-27 07:20] VITALS: BP 113/61; PULSE 81; RESP 18; TEMP 36.2; O2SAT 97
[2022-01-27] MEDS: Acetaminophen 325 MG TABLET 650 MG PO (07:55)
--- NOTE | 2022-01-27 08:09 | P.DS_ITS ---
DS: Providers Provider Date of Service: 01/27/22 Date of admission: 01/25/22 19:15 Primary care physician: Unknown Physician Consults: 01/25/22 19:17 Consult to Urology Routine Consulting Provider: Bowen Eubanks Reason for consultation: left hydroureteronephrosis with a 0.4 cm distal ureteral calculus DS: Diagnosis Discharge Diagnosis (1) Medullary sponge kidney: Status: Acute (2) Renal colic: Status: Acute DS: Summary Hospital Course Hospital Course: 32-year-old female with a past medical history of renal calculi? requiring nephrostomy tubes in the past presented to the hospital today with a chief complaint of left flank pain.? Patient reported that she has woke up in the morning and developed severe pain in her left flank; 10/10 in intensity, sharp, nonradiating, noted mild blood in the urine.? Denies any burning or frequency during urination.? Denies any fever chills cough.? Denies any GI symptoms.? Denies any chest pain or palpitations. Hospital course: Patient admitted for left-sided flank pain secondary to ureteral calculus noted- status post urological procedure- cysto, left retrograde, stent placement, patient was updated in detail. Patient pain seems to be improved. Going home with pain and nausea medication Further management outpatient as per Urology and pcp. above management discussed with patient detail and she understand and in agreement with the above plan. Time Spent with Patient Time attestation: Total time spent providing and/or coordinating discharge services: Discharge coordination time: Greater than 30 minutes Quality: Safe Use of Opioids Does Pt have an Active Cancer Diagnosis on the Problem List?: No Quality: Stroke Does the patient have a stroke diagnosis?: No Physical Exam Vital Signs: Vital Signs: Last Vital Signs Temp 97.1 F 01/27/22 07:20 Pulse 81 01/27/22 07:20 Resp 18 01/27/22 07:20 BP 113/61 01/27/22 07:20 Pulse Ox 97 01/27/22 07:20 BMI result Body Mass Index 29.2 Gen: Appears be in no acute distress HEENT:? NCAT,? Moist mucosa. Pulmonary:? Vesicular breath sounds, fair air entry CVS:? Normal S1-S2 Abdomen: BS+, Soft,? tender in the left flank Extremities:? Warm well perfused Neuro:? Alert and awake. DS: Data Data Completed and Pending Labs on day of discharge: Laboratory Results - last 24 hr 01/27/22 05:37 Sodium 138 Potassium 4.2 Chloride 108 Carbon Dioxide 23 Anion Gap 11 L BUN 7 L Creatinine 0.80 Estim Creat Clear Calc 95.0 Estimated GFR > 60 Random Glucose 166 H Calcium 9.5 Additional Comments Additional comments: ?CT/CT abdomen pelvis wo con IMPRESSION: Medullary nephrocalcinosis. Mild left hydroureteronephrosis with a 0.4 cm distal ureteral calculus noted.? ? Fleischner guidelines were followed. Discharge Plan Discharge Patient Disposition: Home, Self-Care Discharge Diagnosis: nephrolithasis Referrals: Physician,Unknown J [Primary Care Provider] - 1 Week Discharge Medications: New tramadol 50 mg Tablet 50 mg PO Q6H PRN (Reason: Pain, Moderate (Pain Scale 4-6) Qty: 10 0RF ondansetron HCl 4 mg tablet 4 mg PO DAILY 3 Days Qty: 10 0RF phenazopyridine [Pyridium] 100 mg tablet 100 mg PO TID PRN (Reason: spasm) 4 Days Qty: 12 0RF tamsulosin 0.4 mg capsule 0.4 mg PO BEDTIME 14 Days Qty: 14 0RF Diet: advance to usual diet Activity on Discharge: As tolerated Stand Alone Forms: Patient Portal Discharge page Care Plan Goals: Patient admitted for left-sided flank pain secondary toureteral calculus noted- status post urological procedure and stone was removed patient was updated in detail. Patient pain seems to be improved. Going home with pain and nausea medication Further management outpatient as per Urology and pcp. Health Concerns: As above. Plan of Treatment: As above. Assessment: As above.
[2022-01-27 11:48] VITALS: BP 133/72; PULSE 90; RESP 20; TEMP 36.9; O2SAT 97
--- NOTE | 2022-01-27 12:04 | MHC.CM.PN ---
pt medically cleared for d/c home self care, pt to arrange transport
--- NOTE | 2022-01-27 14:10 | HO.POSTANES ---
Post Anesthesia Evaluation Post Anesthesia Evaluation Vital Signs: Vital Signs Temp Pulse Resp BP Pulse Ox 01/27/22 11:48 98.4 F 90 20 133/72 97 01/27/22 07:20 97.1 F 81 18 113/61 97 01/27/22 03:48 97.4 F 82 18 117/63 98 Anesthesia: General Mental Status: Awake Pain Control: Satisfactory Nausea/Vomiting: None Hydration: Adequate Anesthesia-Related Issues: No Anes. Related Issues Comments: Patient seen at 650am this morning
== END 2022-01-27 13:27 | disposition home or self-care (01) | DRG 660 ==
LOC: HO.ED 12:59 → HO.EDOVER 01-26 00:18 → HO.S3 01-26 05:55
PROVIDERS: Student in an Organized Health Care Education/Training Program; Urology; Admitting Provider Hospitalist; Emergency Provider Emergency Medicine Emergency Medical Services; Visit Provider Internal Medicine
PROC: 0T778DZ Dilation of Left Ureter with Intraluminal Device, Via Natural or Artificial Opening Endoscopic (ICD-10-PCS; principal; 2022-01-26 16:30)
DX: N13.2 Hydronephrosis with renal and ureteral calculous obstruction (principal); Q61.5 Medullary cystic kidney; Z87.442 Personal history of urinary calculi; Z20.822 Contact with and (suspected) exposure to COVID-19; Z79.899 Other long term (current) drug therapy
CPT/HCPCS: 36415; 74176; 80048; 80053; 81001; 81025; 83690; 84702; 85025; 87086; 87635; 96361; 96372; 96374; 96375; 96376; 99285; C1758; C1769; C2617; J1100; J1170; J1885; J2250; J2405; J3010; Q9967

== ENCOUNTER → 2022-02-09 11:42 | Outpatient (BNVA) | payer OTHER, SELFPAY | PROVIDERS: Visit Provider Urology | DX: Z13.89 Encounter for screening for other disorder (principal) ==

== ENCOUNTER 2022-02-15 09:53 | Day surgery (SDC) | payer OTHER, SELFPAY ==
--- NOTE | 2022-02-12 10:09 | HO.ANESPROP2 ---
HPI - Anesthesia Eval Consult details Narrative: 32yo F for Left Cystoscopy, Ureteroroscopy, Retro, Laser with poss stent exchange s/p cysto, etc 01/28/22 with GA-LMA 4 PMFSH Active Problems Active Problems: All Active Problems (Updated 02/09/22 @ 14:50 by Kendra Kelley, RN) Renal colic (Acute) Ureterolithiasis (Acute) Hydronephrosis (Acute) Medullary sponge kidney (Acute) Past Medical History Medical History (Updated 02/09/22 @ 14:50 by Kendra Kelley, RN) Kidney stones Medullary sponge kidney Family History Family history of problems with anesthesia: No Surgical History Surgical History (Updated 02/15/22 @ 10:20 by Crystal Lockhart RN) History of cystoscopy Hx laparoscopic cholecystectomy History of Problems with Anesthesia: No Social History Social History Household Members: Family Housing: House Patient Tobacco Use Status: Never used Tobacco Advance Directives Date on File: 02/15/22 service: No Current occupational status: employed Meds Allergies Allergy/AdvReac Type Severity Reaction Status Date / Time No Known Allergies Allergy Verified 02/09/22 11:43 Exam Exam Date and Time: February 12, 2022 1009 Pertinent Lab Results Pertinent Lab Results: Laboratory Tests 01/26/22 01/27/22 04:12 05:37 WBC 8.8 Hgb 13.2 Hct 38.2 Plt Count 338 Sodium 138 Potassium 4.2 Chloride 108 Carbon Dioxide 23 BUN 7 L Creatinine 0.80 Assessment and Plan Assessment Anesthesia Assessment: Chart Reviewed Final Anesthetic Review Family History of Problems with Anesthesia: No History of Problems with Anesthesia: No
[2022-02-15] VITALS (7 sets, daily range): BP systolic 136–149; BP diastolic 76–91; PULSE 86–110; RESP 16–17; TEMP 36.3–36.7; O2SAT 99–100; BMI 29.2
--- NOTE | ~2022-02-15 | FL_ITS ---
EXAMINATION: XR FL WITH IMAGES CLINICAL INFORMATION: Left retrograde cystoureterography. COMPARISON: 01/26/2022 TECHNIQUE: Fluoroscopy performed by Dr. Bowen Eubanks. Fluoroscopy time: 42.1 seconds. DLP: 10.94 mGy. Images: 3. FINDINGS: Images demonstrate some contrast within the left ureter with stent from retrograde cystoureterography. FL/FL guidance in OR IMPRESSION: Intraoperative fluoroscopy provided for urologic procedure.
[2022-02-15 10:26] LABS: UPreg QC Valid YES; Urine Pregnancy NEGATIVE (NEGATIVE)
[2022-02-15] MEDS: Lactated Ringers 1,000 ML 100 ML IVCONT (10:34)
--- NOTE | 2022-02-15 10:35 | HO.ANESPROP2 ---
[facility], [facility] Active Problems Active Problems: All Active Problems (Updated 02/09/22 @ 14:50 by Kendra Kelley, RIMA) Renal colic (Acute) Ureterolithiasis (Acute) Hydronephrosis (Acute) Medullary sponge kidney (Acute) Past Medical History Medical History (Updated 02/09/22 @ 14:50 by Kendra Kelley RN) Kidney stones Medullary sponge kidney Family History Family history of problems with anesthesia: No Surgical History Surgical History (Updated 02/15/22 @ 10:20 by Crystal Lockhart RN) History of cystoscopy Hx laparoscopic cholecystectomy History of Problems with Anesthesia: No Social History Social History Household Members: Family Housing: House Patient Tobacco Use Status: Never used Tobacco Are you DNR?: No Advance Directives: Yes Advance Directives on File: Yes Advance Directives Date on File: 02/15/22 Patient : No service: No Current occupational status: employed Meds Allergies Allergy/AdvReac Type Severity Reaction Status Date / Time No Known Allergies Allergy Verified 02/09/22 11:43 Active Medications: Current Medications Lactated Ringer's (Lr) 1,000 mls @ 100 mls/hr IVCONT .Q10H DUY Last Admin: 02/15/22 10:34 Dose: 100 mls/hr Documented by: Exam Exam Date and Time: February 15, 2022 1035 Height,Weight and Vital Signs: Height 5 ft 2 in Weight 72.575 kg Last Vital Signs Temp 97.3 F 02/15/22 10:11 Pulse 86 02/15/22 10:11 Resp 17 02/15/22 10:11 BP 138/76 02/15/22 10:11 Pulse Ox 99 02/15/22 10:11 Pertinent Lab Results Pertinent Lab Results: Laboratory Tests 02/15/22 10:02 Urine Test NEGATIVE Airway Mallampati Class: II TM Dist: >3cm Neck ROM: Full Heart: rrr Lungs: cta Assessment and Plan Assessment Anesthesia Assessment: Anesthesia Plan Discussed and Chart Reviewed Final Anesthetic Review Family History of Problems with Anesthesia: No History of Problems with Anesthesia: No NPO: Yes ASA Class: II Final Preanesthetic Review: No Changes in Pt Med Stat, Meds/Allgs Chart Reviewed and Consent Obtained/Reviewed Patient Risk: Intermediate Procedure Risk: Intermediate Anesthetic Plan Anesthetic Plan: GA Disposition: Standard PACU
[2022-02-15] MEDS: levoFLOXacin 500 MG TABLET PO (10:47)
--- NOTE | 2022-02-15 13:49 | W.PM.OPN ---
Operative Note Operative Note Date of Service: 02/15/22 Narrative: PreOperative Diagnosis: left indwelling stent with distal left ureteric stone and left renal stones in multiple calices Post Operative Diagnosis: above Procedure: - cystoscopy, left retrograde - removal of left indwelling ureter - left rigid ureteroscopy, laser lithotripsy, stone basketing - left flexible ureteroscopy laser lithotripsy - left stent placement Surgeon: Dr Bowen Eubanks Anesthesia: General Indications for procedure: Medullary sponge kidney. Seen previously with distal left ureteric stone and stent had been placed. Here for definitive procedure on distal left ureteric stone and for flexible ureteroscopy with laser lithotripsy of multiple calices shown to have stones on CT imaging Procedure: After informed consent was verified patient was brought to the operating placed in supine position. Anesthesia was administered per protocol. Patient was placed in modified dorsal lithotomy position and prepped and draped in a sterile fashion. Safety pause time-out and side of surgery confirmed. Antibiotics confirmed. A 22 [place] cystoscope was inserted per urethra. Bladder was normal in its entirety. stent emerging from left ureteric orifice The left ureteric orifice was cannulated and a retrograde examination was performed. filling defects seen in proximal ureter. Left indwelling catheter removed. . A Sensor guidewire was placed up to the level of the renal pelvis under fluoroscopy. The semi rigid ureteral scope was placed alongside the Sensor guidewire. Stone was encountered in the distal 3rd of the ureter. Using a laser fiber the stone was broken into small fragments. Using a basket fragments were removed and will be sent for analysis. The ureteric access sheath was then placed over the wire up to the level the renal pelvis. The wire in the internal cannula removed. A flexible ureteral scope was placed. All calices were examined. They all had submucosal stones to varying degree. Some of the mid pole calices had almost 100% stone below the calyx mucosa. Using the 262 micron laser fiber Valentin stones were opened in a back UA did from the submucosal tissue. We were not able to removal of these but we try to debulk large amounts of the submucosal stone that was present. Once this had been completed through all calices the renal pelvis was irrigated and debris removed. A 6 [place] by 24 cm double-J stent was placed into the renal pelvis and bladder under a combination of fluoroscopy and direct visualization. The bladder was emptied. The patient tolerated the procedure well and was extubated in the operating room, and transferred in stable condition to the recovery area. Pathology: stones Drains: 6 [place] by 24 cm double-J stent
[2022-02-15] MEDS: Phenazopyridine HCL 100 MG TABLET PO (14:24)
[2022-02-15] MEDS: Acetaminophen 325 MG TABLET 650 MG PO (14:26)
[2022-02-19 21:27] LABS: Stone Source URETERAL STONE
== END 2022-02-15 15:05 | disposition home or self-care (01) ==
PROVIDERS: Nurse Practitioner; Visit Provider Urology
PROC: (CPT 52356; principal; 2022-02-15 12:50)
DX: N20.0 Calculus of kidney (principal); N20.1 Calculus of ureter; Q61.5 Medullary cystic kidney; Z79.899 Other long term (current) drug therapy; Z90.49 Acquired absence of other specified parts of digestive tract
CPT/HCPCS: 52356; 52352; 81025; 82365; 88300; C1758; C1769; C2617; J1885; J2250; J3010

== ENCOUNTER → 2022-02-23 14:38 | Outpatient (BNVA) | payer OTHER, SELFPAY | PROVIDERS: Visit Provider Urology | DX: Q61.5 Medullary cystic kidney (principal) | CPT/HCPCS: 52005; 52310 ==